=== PATIENT | female | born 1990 | race Caucasian/White ===

== ENCOUNTER 2017-10-05 09:30 | Day surgery (SDC) | payer OTHER ==
[~2017-10-05] VITALS: Ht 167.6 cm; Wt 63.5 kg
[~2017-10-05 09:30] MED LIST: BUPIVACAINE 0.25% ONE; EPINEPHRINE 1 MG/ML, 1ML ONE; VASOPRESSIN 20 UNIT/ML, 1ML ONE
[2017-10-05] MEDS ORDERED: LACTATED RINGERS 1,000 ML IV SCH (09:54)
[2017-10-05] MEDS ORDERED: LIDOCAINE-MPF 1%, 2ML ONE (09:54)
[2017-10-05 09:57] VITALS: BP 110/72
[2017-10-05] MEDS ORDERED: AMOX-291 PO (09:57)
[2017-10-05] MEDS ORDERED: HYDR-883 PO (09:57)
[2017-10-05] MEDS ORDERED: LIDOCAINE-MPF 1%, 2ML INFIL ONE (10:00)
[2017-10-05 10:02] LABS: HCG UR SG 1.015 (1.003-1.030)
[2017-10-05] MEDS ORDERED: MIDAZOLAM 1 MG/ML, 2ML ONE (11:37)
[2017-10-05] MEDS ORDERED: FENTANYL PF 100 MCG/2ML ONE ×2 (11:37→12:50)
[2017-10-05] MEDS ORDERED: LIDOCAINE-MPF 2% ,5ML ONE (11:38)
[2017-10-05] MEDS ORDERED: PROPOFOL 10 MG/ML, 20ML ONE (11:38)
[2017-10-05] MEDS ORDERED: ONDANSETRON ODT 8 MG ONE ×2 (11:40)
[2017-10-05] MEDS ORDERED: DEXAMETHASONE 4 MG/ML, 1ML ONE ×2 (11:51)
[2017-10-05] MEDS ORDERED: KETOROLAC 30 MG/1 ML ONE (12:05)
[2017-10-05] MEDS ORDERED: ACETAMINOPHEN 325 MG TABLET PO PRN (12:30)
[2017-10-05] MEDS ORDERED: morphine SULFATE 10 MG/ML, 1ML IV PRN (12:30)
[2017-10-05] MEDS ORDERED: PROMETHAZINE 25 MG/ML, 1ML IV PRN (12:30)
[2017-10-05] MEDS ORDERED: OXYcodone 5 MG/5 ML ORAL.SOL UDC PO PRN (12:30)
[2017-10-05] MEDS ORDERED: MEPERIDINE/PF 25MG/0.5ML IVPush PRN (12:30)
[2017-10-05] MEDS ORDERED: OXYcodone 5 MG/5 ML ORAL.SOL UDC ONE (12:50)
[2017-10-05] MEDS ORDERED: ACETAMINOPHEN 650 MG/20.3 ML UDC ONE (12:50)
[2017-10-05] MEDS: FENTANYL PF 100 MCG/2ML IV PRN ×2 (12:53→13:05)
== END 2017-10-05 14:45 ==
LOC: OUT 09:30
PROVIDERS: ATTEND Specialist
DX: N87.1 Moderate cervical dysplasia (principal); Z98.890 Other specified postprocedural states
CPT/HCPCS: 57522; 81025; 88305; 88307; J0171; J1100; J1885; J2250; J2704; J3010; J3490; J7120; Q0162